=== PATIENT | female | born 1990 | race Two or more races ===

== ENCOUNTER 2022-10-18 09:59 | Emergency (ER) | payer MEDICAID ==
[~2022-10-18] VITALS: Ht 162.6 cm; Wt 86.0 kg
[2022-10-18 10:54] VITALS: BP 104/63; PULSE 79; RESP 18; TEMP 98.2; O2SAT 98
[2022-10-18 11:02] LABS: Urine WBC None Seen /hpf (0 - 5)
[2022-10-18 11:45] LABS: Urine Bacteria NONE SEEN /hpf (None Seen); Urine Blood Negative /uL (Negative); Urine Clarity Clear (Clear); Urine Protein, UAD Negative (Negative); Urine Specific Gravity 1.019 (1.001-1.035); Urine Urobilinogen Normal (Negative)
[2022-10-18 11:51] LABS: Urine Color Straw (Yellow)
[2022-10-18 11:58] LABS: Basophils # (auto) 0 10 ^3/uL (0-0.2); Basophils % (auto) 0.1 % (0.0-2.0); Eosinophils # (auto) 0 10 ^3/uL (0-0.8); Eosinophils % (auto) 0.6 % (0.0-7.0); Hematocrit 38.1 % (36.0-46.0); Hemoglobin 12.7 g/dL (12.2-16.2); Lymphocytes # (auto) 1.3 10 ^3/uL (0.4-5.4); Mean Corpuscular Hemoglobin 29.5 pg (28.0-32.0); Mean Corpuscular Hgb Conc. 33.4 g/dL (32.0-36.0); Mean Corpuscular Volume 88.2 fL (80.0-100.0); Monocytes # (auto) 0.4 10 ^3/uL (0-1.3); Neutrophils # (auto) 4.8 10 ^3/uL (1.6-8.6); Neutrophils % (auto) 73.3 % (37.0-80.0); Nucleated Red Blood Cells % 0.2 %; Red Blood Cells 4.32 10^6/uL (4.0-5.20); Red Cell Distribution Width 13.2 % (11.8-14.3); White Blood Cell 6.5 10^3/uL (4.4-10.8)
[2022-10-18 12:02] LABS: Chloride 106 mmol/L (98-107); Potassium 3.7 mmol/L (3.5-5.1); Sodium 138 mmol/L (136-145)
[2022-10-18 12:03] LABS: Calcium 9.1 mg/dL (8.5-10.1)
[2022-10-18 12:08] LABS: BUN/Creatinine Ratio 29.8 (10.0-20.0); Blood Urea Nitrogen 14 mg/dL (9-23); Glucose 107 mg/dL (74-106)
[2022-10-18] MEDS ORDERED: HYDR50CA PO (12:22)
== END 2022-10-18 12:29 | disposition home or self-care (01) ==
LOC: ER 09:59
DX: F41.1 Generalized anxiety disorder (principal)
CPT/HCPCS: 36415; 80048; 81001; 84484; 85025

== ENCOUNTER 2024-10-04 11:05 | Emergency (ER) | payer MEDICAID ==
[~2024-10-04] VITALS: Ht 162.6 cm; Wt 72.0 kg
[~2024-10-04 11:05] MED LIST: HYDR50CA PO
--- NOTE | 2024-10-04 11:35 | ED.PDOC ---
History of Present Illness HPI Comments This is a 34 year-old female who presents to the ED with a chief complaint of possible foreign object in throat as of yesterday. Patient states she went to the dentist X2 weeks ago and was experiencing ear pain after wisdom tooth extraction. Patient reports visiting PCP for ear pain and taking Ibuprofen every X8 hours. Patient reports recent palpitations, R arm numbness, and R facial numbness. Patient came to the ED today upon feeling something in her throat. Patient has no further complaints at this time and otherwise denies further associated symptoms of N/V/D, fever, chills, headache, dizziness, or chest pain. Chief Complaint: General Weakness Time Seen by MD: 11:24 Primary Care Provider: NONE Reviewed Notes: Medications, Allergies Allergies: Coded Allergies: NO KNOWN ALLERGIES (Unverified , 10/18/22) Home Meds Active Scripts Amoxicillin & Pot Clavulanate (Augmentin) 500 Mg Tab, 1 TAB PO BID for 7 Days, #14 TAB Prov:LETITIA CHASE MD 10/04/24 Hydroxyzine Pamoate (Vistaril) 50 Mg Cap, 1 CAP PO BID, #20 CAP Prov:RACHID MCKEON 10/18/22 Information Source: Patient Mode of Arrival: Ambulatory Severity: Moderate Timing: Days Duration: Since onset Past Medical History PAST MEDICAL HISTORY: Denies Surgical History: Denies all surgeries 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 Family History Family History: Reviewed,noncontributory to illness Social History Smoker: Non-Smoker Alcohol: Denies ETOH Use Drugs: Denies Drug Use Lives In: Home Constitutional: denies: chills, diaphoresis, fatigue, fever, malaise, sweats, weakness, others EENTM: reports: others (throat discomfort ); denies: blurred vision, double vision, ear bleeding, ear discharge, ear drainage, ear pain, ear ringing, eye pain, eye redness, hearing loss, mouth pain, mouth swelling, nasal discharge, nose bleeding, nose congestion, nose pain, photophobia, tearing, throat pain, throat swelling, voice changes Respiratory: denies: cough, hemoptysis, orthopnea, SOB at rest, shortness of breath, SOB with excertion, stridor, wheezing, others Cardiovascular: denies: chest pain, dizzy spells, diaphoresis, Dyspnea on exertion, edema, irregular heart beat, left arm pain, lightheadedness, palpitations, PND, syncope, others Gastrointestinal: denies: abdomen distended, abdominal pain, blood streaked bowels, constipated, diarrhea, dysphagia, difficulty swallowing, hematemesis, melena, nausea, poor appetite, poor fluid intake, rectal bleeding, rectal pain, vomiting, others Genitourinary: denies: abnormal vagina bleeding, burning, dyspareunia, dysuria, flank pain, frequency, hematuria, incontinence, pain, , vagina discharge, urgency, others Neurological: denies: dizziness, fainting, headache, left sided numbness, left sided weakness, numbness, paresthesia, pre-existing deficit, right sided numbness, right sided weakness, seizure, speech problems, tingling, tremors, weakness, others Musculoskeletal: denies: back pain, gout, joint pain, joint swelling, muscle pain, muscle stiffness, neck pain, others Integumetry: denies: bruises, change in color, change in hair/nails, dryness, laceration, lesions, lumps, rash, wounds, others Allergic/Immunocompromised: denies: Difficulty Healing, Frequent Infections, Hives, Itching, others Hematologic/Lymphatic: denies: anemia, blood clots, easy bleeding, easy bruising, swollen glands, others Endocrine: denies: excessive hunger, excessive sweating, excessive thirst, excessive urination, flushing, intolerance to cold, intolerance to heat, unexplained weight gain, unexplained weight loss, others Psychiatric: denies: anxiety, bipolar disorder, depression, hopeless, panic disorder, schizophrenia, sleepless, suicidal, others All Other Systems: Reviewed and Negative Physical Exam General Appearance: Moderate Distress HEENT: Normal ENT Inspection, Pharynx Normal, TMs Normal Neck: Full Range of Motion, Non-Tender, Normal, Normal Inspection Respiratory: Chest Non-Tender, Lungs Clear, No Accessory Muscle Use, No Respiratory Distress, Normal Breath Sounds Cardiovascular: No Edema, No JVD, No Murmur, No Gallop, Normal Peripheral Pulses, Regular Rate/Rhythm Breast Exam: Deferred Gastrointestinal: No Organomegaly, Non Tender, No Pulsatile Mass, Normal Bowel Sounds, Soft Genitalia: Deferred Pelvic: Deferred Rectal: Deferred Extremities: No calf tenderness, Normal capillary refill, Normal inspection, Normal range of motion, Non-tender, No pedal edema Musculoskeletal : Apperance: Normal Neurologic: Alert, clinical editor II-XII nml as Tested, No Motor Deficits, Normal Affect, Normal Mood, No Sensory Deficits Cerebellar Function: Normal Reflexes: Normal Skin: Dry, Normal Color, Warm Peripheral Pulses: 3+ Radial (R), 3+ Radial (L) Lymphatic: No Adenopathy Was a procedure done? Was a procedure done?: No Differential Dx Considerations may include: Anxiety, Panic Disorder X-Ray, Labs, Meds, VS Vital Signs Date Time Temp Pulse Resp B/P (MAP) Pulse Ox O2 Delivery O2 Flow Rate FiO2 10/04/24 11:14 111 10/04/24 11:09 98.0 101 16 114/74 98 98.0 Patient alert. Came in because of tooth pain. She has a tooth extracted recently. Vitals stable. Answering all questions. Possible sinusitis. Moving all extremities. She is anxious. Saturation pristine on room air. Respiratory rate within normal limits. Heart rate clinically is within normal limits. Was given prescription Augmentin antibiotic. Explained to the patient. Was told to follow up with her primary care physician. Was told to come back if there is any problem. Time of 1ST Reevaluation: 12:05 Reevaluation 1ST: Unchanged Patient Education/Counseling: Diagnosis, Treatment Family Education/Counseling: No Family Present SEPSIS Sepsis Screen Date sepsis recognized/suspect: Oct 04, 2024 Time Sepsis recognized/suspect: 1112 Recent Procedure: No On Antibiotic Therapy: No Respiratory Rate >20: No Heart Rate >90: Yes Temp<36 C (96.8 F) or >38.3 C: No SBP <90 or MAP <65 mmHG: No New Acute Mental Status Change: No Is the patient on CPAP, BIPAP,: No Physician Orders Electrocardigram (10/04/24 11:17) Vital Signs Date Time Temp Pulse Resp B/P (MAP) Pulse Ox O2 Delivery O2 Flow Rate FiO2 10/04/24 11:14 111 10/04/24 11:09 98.0 101 16 114/74 98 98.0 Departure 1 Departure Time of Disposition: 11:56 Impression: Primary Impression: Anxiety about health Additional Impressions: Anxiety Sinusitis Qualified Codes: J01.10 - Acute frontal sinusitis, unspecified Disposition: 01 HOME / SELF CARE / HOMELESS Condition: Good e-Prescriptions Cephalexin (KEFLEX CAPSULE) 250 Mg Cp 250 MG PO TID for 5 Days, #15 BOTTLE Prov: LETITIA CHASE MD 10/04/24 Discharged With: Self Critical Care Note Critical Care Time?: No Stability Stability form required: No Heart Score Heart Score: Heart Score Response (Comments) Value History N/A 0 EKG N/A 0 Age N/A 0 Risk Factors N/A 0 Troponin N/A 0 Total 0 I personally scribed for LETITIA CHASE MD ([email or web address]) on 10/04/24 at 11:35. Electronically submitted by Inga Wilson ([facility]). LETITIA CHASE MD Oct 04, 2024 11:35
[2024-10-04] MEDS ORDERED: AMOX500T86 PO (11:57)
[2024-10-04] MEDS ORDERED: CEPH250C PO (13:44)
[2024-10-04 13:47] VITALS: BP 120/80; PULSE 79; RESP 16; TEMP 98.3; O2SAT 99
--- NOTE | 2024-10-06 07:51 | ECG ---
[facility] Test Date: 2024-10-04 Test Time: 11:14:50 Pat Name: TULIO MULLEN Department: ED Room: Gender: F Direct Support Professional Home Health: jagdeep : 1990 Requested By: LETITIA CHASE Order Number: [id number] Reading MD: Tono Reaves Measurements Intervals [place] Rate: 111 P: 77 MN: 137 QRS: 55 QRSD: 87 T: 11 QT: 323 QTc: 439 Interpretive Statements Sinus tachycardia Atrial premature complexes Probable left atrial enlargement Borderline T abnormalities, anterior leads Electronically Signed On 10-06-2024 18:19:18 PDT by Tono Reaves Please click the below link to view image of tracing.
== END 2024-10-04 13:47 | disposition home or self-care (01) ==
LOC: ER 11:05
DX: F41.9 Anxiety disorder, unspecified (principal); J32.8 Other chronic sinusitis; Z79.899 Other long term (current) drug therapy
CPT/HCPCS: 93005

== ENCOUNTER 2024-10-26 12:45 | Emergency (ER) | payer MEDICAID ==
[~2024-10-26] VITALS: Ht 154.9 cm; Wt 71.0 kg
[~2024-10-26 12:45] MED LIST changes: +CEPH250C PO
--- NOTE | 2024-10-26 13:05 | ED.PDOC ---
HPI Allergic reaction HPI Comments 34 y/o F, presents to the ED for CC of allergic reaction. Patient states, she just started taking Cephalexin for her sinusitis when she began to experience symptoms of dizziness with a generalized headache. Patient reports, Cephalexin was prescribed to her on 10/05/24. Patient denies shortness of breath, chest pa in, difficulty swallowing, or rash. No other symptoms or modifying factors are present at this time. Chief Complaint: Allergic Reaction Time Seen by MD: 12:55 Primary Care Provider: NONE Reviewed Notes: Nurses Notes, Medications, Allergies Allergies: Coded Allergies: NO KNOWN ALLERGIES (Unverified , 10/18/22) Home Meds Active Scripts Meclizine HCl (Meclizine 25) 25 Mg Tab, 25 MG PO DAILY for 5 Days, #5 TAB Prov:LETITIA CHASE MD 10/26/24 Cephalexin (KEFLEX CAPSULE) 250 Mg Cp, 250 MG PO TID for 5 Days, #15 BOTTLE Prov:LETITIA CHASE MD 10/04/24 Hydroxyzine Pamoate (Vistaril) 50 Mg Cap, 1 CAP PO BID, #20 CAP Prov:RACHID MCKEON 10/18/22 Information Source: Patient Mode of Arrival: Ambulatory Severity: Moderate Rash: None SOB: None Difficulty swallowing: None Pruritus: None Timing: Minutes Duration: Since onset Prehospital treatment: None Exposed to: Medication History of: None Modyifying Factors: None Associated Sign and Symptoms: None Past Medical History PAST MEDICAL HISTORY: Denies Surgical History: Denies all surgeries 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 Family History Family History: Reviewed,noncontributory to illness Social History Smoker: Non-Smoker Alcohol: Denies ETOH Use Drugs: Denies Drug Use Lives In: Home Constitutional: denies: chills, diaphoresis, fatigue, fever, malaise, sweats, weakness, others EENTM: denies: blurred vision, double vision, ear bleeding, ear discharge, ear drainage, ear pain, ear ringing, eye pain, eye redness, hearing loss, mouth pain, mouth swelling, nasal discharge, nose bleeding, nose congestion, nose pain, photophobia, tearing, throat pain, throat swelling, voice changes, others Respiratory: denies: cough, hemoptysis, orthopnea, SOB at rest, shortness of breath, SOB with excertion, stridor, wheezing, others Cardiovascular: denies: chest pain, dizzy spells, diaphoresis, Dyspnea on exertion, edema, irregular heart beat, left arm pain, lightheadedness, palpitations, PND, syncope, others Gastrointestinal: denies: abdomen distended, abdominal pain, blood streaked bowels, constipated, diarrhea, dysphagia, difficulty swallowing, hematemesis, melena, nausea, poor appetite, poor fluid intake, rectal bleeding, rectal pain, vomiting, others Genitourinary: denies: abnormal vagina bleeding, burning, dyspareunia, dysuria, flank pain, frequency, hematuria, incontinence, pain, , vagina disch arge, urgency, others Neurological: reports: dizziness, headache; denies: fainting, left sided numbness, left sided weakness, numbness, paresthesia, pre-existing deficit, right sided numbness, right sided weakness, seizure, speech problems, tingling, tremors, weakness, others Musculoskeletal: denies: back pain, gout, joint pain, joint swelling, muscle pain, muscle stiffness, neck pain, others Integumetry: denies: bruises, change in color, change in hair/nails, dryness, laceration, lesions, lumps, rash, wounds, others Allergic/Immunocompromised: denies: Difficulty Healing, Frequent Infections, Hives, Itching, others Hematologic/Lymphatic: denies: anemia, blood clots, easy bleeding, easy bruising, swollen glands, others Endocrine: denies: excessive hunger, excessive sweating, excessive thirst, excessive urination, flushing, intolerance to cold, intolerance to heat, unexplained weight gain, unexplained weight loss, others Psychiatric: denies: anxiety, bipolar disorder, depression, hopeless, panic disorder, schizophrenia, sleepless, suicidal, others All Other Systems: Reviewed and Negative Physical Exam General Appearance: Moderate Distress HEENT: Normal ENT Inspection, Pharynx Normal, TMs Normal Neck: Full Range of Motion, Non-Tender, Normal, Normal Inspection Respiratory: Chest Non-Tender, Lungs Clear, No Accessory Muscle Use, No Respiratory Distress, Normal Breath Sounds Cardiovascular: No Edema, No JVD, No Murmur, No Gallop, Normal Peripheral Pulses, Regular Rate/Rhythm Breast Exam: Deferred Gastrointestinal: No Organomegaly, Non Tender, No Pulsatile Mass, Normal Bowel Sounds, Soft Genitalia: Deferred Pelvic: Deferred Rectal: Deferred Extremities: No calf tenderness, Normal capillary refill, Normal inspection, Normal range of motion, Non-tender, No pedal edema Musculoskeletal : Apperance: Normal Neurologic: Alert, logistic specialist II-XII nml as Tested, No Motor Deficits, Normal Affect, Normal Mood, No Sensory Deficits Cerebellar Function: Normal Reflexes: Normal Skin: Dry, Normal Color, Warm Peripheral Pulses: 3+ Radial (R), 3+ Radial (L) Lymphatic: No Adenopathy Was a procedure done? Was a procedure done?: No Differential diagnosis (all) Differential Diagnosis: Drug Reaction X-Ray, Labs, Meds, VS Vital Signs Date Time Temp Pulse Resp B/P (MAP) Pulse Ox O2 Delivery O2 Flow Rate FiO2 10/26/24 16:23 68 16 96 Room Air 10/26/24 16:23 98.3 86 16 128/72 (90) 96 98.3 10/26/24 12:48 98.1 84 18 126/98 96 98.1 Patient alert. Anxious. Vitals stable. Answering questions. No shortness a breath. No chest pain. No leg swelling. Saturation pristine on room air. No neurological deficit. Able to ambulate without any difficulty. Good muscle strength. Was given prescription of meclizine. Explained to the patient. Was told to follow up with her primary care physician. Was told to come back if there is any problem. Time of 1ST Reevaluation: 13:25 Reevaluation 1ST: Unchanged Patient Education/Counseling: Diagnosis, Treatment Family Education/Counseling: No Family Present SEPSIS Sepsis Screen Date sepsis recognized/suspect: Oct 26, 2024 Time Sepsis recognized/suspect: 1251 Recent Procedure: No On Antibiotic Therapy: No Respiratory Rate >20: No Heart Rate >90: No Temp<36 C (96.8 F) or >38.3 C: No SBP <90 or MAP <65 mmHG: No New Acute Mental Status Change: No Is the patient on CPAP, BIPAP,: No Vital Signs Date Time Temp Pulse Resp B/P (MAP) Pulse Ox O2 Delivery O2 Flow Rate FiO2 10/26/24 16:23 68 16 96 Room Air 10/26/24 16:23 98.3 86 16 128/72 (90) 96 98.3 10/26/24 12:48 98.1 84 18 126/98 96 98.1 Departure 1 Departure Time of Disposition: 15:10 Impression: Primary Impression: Autonomic disorder Disposition: 01 HOME / SELF CARE / HOMELESS Condition: Good e-Prescriptions Meclizine HCl (Meclizine 25) 25 Mg Tab 25 MG PO DAILY for 5 Days, #5 TAB Prov: LETITIA CHASE MD 10/26/24 Discharged With: Self Critical Care Note Critical Care Time?: No Stability Stability form required: No Heart Score Heart Score: Heart Score Response (Comments) Value History N/A 0 EKG N/A 0 Age N/A 0 Risk Factors N/A 0 Troponin N/A 0 Total 0 I personally scribed for LETITIA CHASE MD ([email or web address]) on 10/26/24 at 13:04. Electronically submitted by Coleen Hoskins ([email or web address]). I personally scribed for LETITIA CHASE MD ([email or web address]) on 10/26/24 at 13:07. Electronically submitted by Coleen Hoskins ([email or web address]). LETITIA CHASE MD Oct 26, 2024 13:04
[2024-10-26] MEDS ORDERED: MECL1TAB42 PO (15:11)
[2024-10-26 16:23] VITALS: BP 128/72; PULSE 68; RESP 16; TEMP 98.3; O2SAT 96
== END 2024-10-26 16:25 | disposition home or self-care (01) ==
LOC: ER 12:45
DX: G90.9 Disorder of the autonomic nervous system, unspecified (principal); T78.49XA Other allergy, initial encounter; X58.XXXA Exposure to other specified factors, initial encounter